=== PATIENT | female | born 1945 | race Caucasian/White ===

== ENCOUNTER → 2017-11-02 | Outpatient (CLI) | payer MEDICARE, OTHER ==
[~2017-11-02] MED LIST: ASPI-630 PO; ATOR20TA PO; CRAN400C PO; DOCU-109 PO; HYDR-2762 PO; IBUP200T44 PO; LACT1CAP29 PO; OMEG-167 PO; THYR60TA PO; UBID50CA25 PO
[2017-11-02 16:13] LABS: BASO % 1 % (0-3); EOS # 0.2 x10^3/uL (0.0-0.7); EOS % 3 % (0-3); HEMATOCRIT 41.7 % (36.0-47.0); HEMOGLOBIN 14.4 g/dL (12.0-15.5); LYMPH # 2.5 x10^3/uL (1.0-4.8); LYMPH % 31 % (24-48); MEAN CORPUSCULAR HEMOGLOBIN 32 pg (25-35); MEAN CORPUSCULAR HGB CONC 35 g/dL (31-37); MEAN CORPUSCULAR VOLUME 93 fL (79-100); MONO # 0.6 x10^3/uL (0.0-1.1); MONO % 7 % (0-9); NEUT # 4.6 x10^3uL (1.8-7.7); NEUT % 58 % (31-73); PLATELET COUNT 222 x10^3/uL (140-400); RED BLOOD COUNT 4.47 x10^6/uL (3.50-5.40); RED CELL DISTRIBUTION WIDTH 13.2 % (11.5-14.5); WHITE BLOOD COUNT 7.9 x10^3/uL (4.0-11.0)
--- NOTE | 2017-11-02 16:21 | EKG ---
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
[2017-11-02 16:35] LABS: ALBUMIN 3.9 g/dL (3.4-5.0); ALBUMIN/GLOBULIN RATIO 1.2 (1.0-1.7); CALCIUM 9.1 mg/dL (8.5-10.1); CREATININE 0.9 mg/dL (0.6-1.0); GFR 61.9; POTASSIUM 4.1 mmol/L (3.5-5.1); TOTAL BILIRUBIN 0.3 mg/dL (0.2-1.0); TOTAL PROTEIN 7.1 g/dL (6.4-8.2)
[2017-11-03 05:16] LABS: HEMOGLOBIN A1C 6.4 % (4.8-5.6)
== END | disposition home or self-care (01) ==
LOC: SURGPAT 13:17
PROVIDERS: ATTEND Neurological Surgery
DX: Z01.818 Encounter for other preprocedural examination (principal); M51.16 Intervertebral disc disorders with radiculopathy, lumbar region; E78.5 Hyperlipidemia, unspecified; R94.31 Abnormal electrocardiogram [ECG] [EKG]
CPT/HCPCS: 36415; 80053; 83036; 85025; 87641; 93005

== ENCOUNTER 2017-11-11 10:26 | Day surgery (SDC) | payer MEDICARE, OTHER ==
[~2017-11-11] VITALS: Ht 167.6 cm; Wt 79.4 kg
--- NOTE | 2017-11-11 09:26 | HP ---
ADMIT DATE: 11/11/2017 Abdullahi Boogie RN dictating for Dr. Hussein Mathur. DATE OF SURGERY: 11/11/2017 HISTORY OF PRESENT ILLNESS: The patient is a pleasant 72-year-old, who in 2001 underwent lumbar disk surgery by me and did very well. She said that in 06/2017, she developed severe back and right leg pain. Prior to that, she was having some problems with increasing lower back pain. Since that problem started, she has noted severe pain in her lower back, which radiates into her right hip. 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 Standing and walking even short distances is associated with significant pain. She awakens at night. She has difficulty sleeping because of the aching pain in her right leg. She says her pain is a 2/10 now, when she walks the pain reaches an 8-9/10. Rest has been of no significant benefit to her. Sitting does help her. She takes Motrin, but it is not particularly helpful. PAST MEDICAL HISTORY: Arthritis, asthma, COPD, cold sores give her blisters, diabetes. PAST SURGICAL HISTORY: Tonsillectomy in 1952; a D and C in 1977; a breast lumpectomy in 1989; toe surgery 1998; back surgery in 2001; broken foot in 1985, 2003, and 2009; hysterectomy 2017. FAMILY HISTORY: Cancer, diabetes, hypertension. SOCIAL HISTORY: Retired. . Exercises daily. Denies substance abuse. Former smoker. Drinks alcohol one daily. Drinks coffee and tea. ALLERGIES: No known drug allergies. CURRENT MEDICATIONS: Aspirin 81, [place] Thyroid, atorvastatin, esterase, fish oil, Coenzyme Q10, cranberry, probiotic collagen, Ventolin and Motrin. REVIEW OF SYSTEMS: A 12-point review of systems was obtained and is noncontributory except for that mentioned above. PHYSICAL EXAMINATION: NEUROSURGERY EXAMINATION: GENERAL APPEARANCE: Alert, pleasant, no acute distress. HEAD: Normocephalic and atraumatic. SKIN: Warm and dry. MUSCULOSKELETAL: Lumbar paraspinal muscle bulk is normal, restricted range of motion of lumbar spine, [id number]-rp-[id number] tenderness of lower lumbar spine with palpation, normal range of motion of the lower extremities bilaterally. EXTREMITIES: No clubbing, cyanosis or edema. NEUROLOGIC: Alert and oriented x 3, normal recent and remote memory, strength 5/5 in bilateral lower extremities except for 4+5 right EHL, sensory was intact to light touch in the bilateral lower extremities except for decrease in the right lateral leg to the dorsum of the right foot, reflexes were trace and symmetric in the lower extremities bilaterally, positive straight leg raising on the right, negative straight leg raising on the left, normal gait. IMAGING: Reviewed. I reviewed a lumbar MRI scan. On that study, there is a very large disk herniation on the right side at L4-L5 with marked effacement of the right L5 nerve root, to a lesser extent on the S1 nerve root. At L5-S1, there is a large posterior disk bulging, which is greater on the right side and which does not contact the S1 roots. ASSESSMENT: 1. Intervertebral disk disorders with radiculopathy, lumbar region. 2. Intervertebral disk disorders with radiculopathy, lumbosacral region. PLAN: The patient has a large disk herniation L4-L5, which is associated with very significant symptoms. My recommendation is that she undergo lumbar microsurgery for this. I would also decompress the right S1 nerve root at L5-S1 because of the significant posterior disk bulging and deviation of the right S1 root at that level as well. I spoke with her about the surgery and the risks. I outlined the postoperative course to the patient, her , and her son. I explained the technique of the surgery. She understands and she would like to go ahead. We will make the arrangements. HUSSEIN MATHUR MD DR: BERTRAND/tresa JOB#: [id number] / [id number]
[~2017-11-11 10:26] MED LIST changes: +BACITRACIN 50,000 UNIT in IV NORMAL SALINE 1000ML BAG 1,000 ML IRR ONE; +BUPIVAC MPF-EPI 0.5%-1:200000 30 ML VIAL. INJ ONE; -DOCU-109 PO; +GELATIN SPONGE SIZE 100. ONE; -HYDR-2762 PO; +HYDROmorphone 2 MG/ML VIAL IV PRN; -IBUP200T44 PO; +IV RINGERS,LACTATED 1000ML 1,000 ML IV SCH; +KETOROLAC 60 MG/2 ML INJ FOR OR. ONE; +LIDOCAINE 1% PF 2 ML VIAL. ID PRN; +MORPHINE SULFATE 2 MG/ML VIAL. IV PRN; +ONDANSETRON PF 4 MG/2 ML VIAL. IV PRN; +PROCHLORPERAZINE 10 MG/2 ML VIAL. IV PRN; +THROMBIN TOPICAL 20,000 UNIT SPRAY.SYRN KIT TP ONE; +fentaNYL PF VIAL 100 MCG/2 ML VIAL IV PRN
[2017-11-11] MEDS ORDERED: IBUP200T44 PO (10:50)
[2017-11-11] MEDS ORDERED: fentaNYL PF VIAL 250 MCG/5 ML VIAL ONE (12:20)
[2017-11-11] MEDS ORDERED: ROCURONIUM 50 MG/5 ML VIAL. ONE (12:20)
[2017-11-11] MEDS ORDERED: REMIFENTANIL 2 MG VIAL. IV ONE (12:20)
[2017-11-11] MEDS ORDERED: GLYCOPYRROLATE 1 MG/5 ML VIAL. ONE (13:06)
[2017-11-11] MEDS ORDERED: NEOSTIGMINE METHYLSULFATE 5 MG/5 ML SYRINGE. ONE (13:06)
[2017-11-11] MEDS ORDERED: ePHEDrine PF IN SALINE 50 MG/5 ML DISP.SYRIN IV ONE (13:24)
[2017-11-11] MEDS ORDERED: PHENYLEPHRINE in 0.9% NACL PF 1 MG/10 ML SYRINGE. IV ONE (14:24)
[2017-11-11] MEDS ORDERED: DESFLURANE > 120 MINUTES IH ONE (14:58)
--- NOTE | 2017-11-11 15:17 | DISCH ---
DISCHARGE INSTRUCTIONS Condition on Discharge Condition on Discharge: Stable Activity After Discharge Activity Instructions for Disc: Activity as tolerated, Avoid exertion Other activity instructions: no driving for a week Bathing Instructions: Shower-keep dressing dry Lifting Instructions after Dis: No heavy lifting, No pulling or pushing, Do not lift >10 pounds Diet after Discharge Additional Diet Restrictions: resume home diet Wound Incision Care Wound/Incision Care: Ice to area for comfort Other wound/incision instructi: may remove dressing in 48 hrs if dry then may shower, no soaking Contacting the after DC Call your doctor for: Concerns you may have Follow-Up Follow up with: Dr. Mathur's nurse 2 weeks [phone] EMERSON MATHUR MD Nov 11, 2017 15:17
[2017-11-11] MEDS ORDERED: HYDR-2762 PO (15:20)
[2017-11-11] MEDS ORDERED: DOCU-109 PO (15:20)
[2017-11-11] MEDS ORDERED: HYDROcodone/APAP 7.5/325MG 1 TAB TABLET PO ONE (15:30)
--- NOTE | 2017-11-11 16:01 | OP ---
DATE OF SURGERY: 11/11/2017 PREOPERATIVE DIAGNOSES: 1. Herniated lumbar disk L4-L5, right. 2. Lateral recess stenosis L5-S1, right with lumbar radiculopathy. POSTOPERATIVE DIAGNOSES: 1. Herniated lumbar disk L4-L5, right. 2. Herniated lumbar disk and lateral recess stenosis L5-S1 right with lumbar radiculopathy. OPERATION PERFORMED: 1. Hemilaminotomy with microdecompression of dura and nerve root L4-L5 right with microdiskectomy L4-L5, right. This is a reoperation at this level. 2. Hemilaminotomy with decompression of dura and nerve root and microdiskectomy L5-S1, right. The operation was done with EMG monitoring, fluoroscopy, microscopic dissection. LOAN AND CREDIT MANAGER: KAYCEE Pickering assisted with the surgery. She assisted with the exposure, the microdiskectomy and decompression at both levels as well as the closure. OPERATIVE INDICATIONS: The patient is a pleasant 72-year-old woman who has developed intractable back and right leg pain, which failed conservative measures. IMAGING STUDIES: She had the above-mentioned findings and I recommended lumbar microsurgery. I spoke with her about the surgery and the risks, technique and expected postoperative course and she wished to go ahead. DESCRIPTION OF PROCEDURE: Following general endotracheal anesthesia, the patient was positioned prone on the Dhruv table with lumbar regions prepped and draped in standard fashion. BREANNA hose and AV impulse boots were applied for DVT prophylaxis. The microscope was draped. Fluoroscopy was draped and brought into the field. Monitoring was established. Ancef 2 grams was given less than 1 hour prior to initiation of the surgery. Using fluoroscopic guidance, incision was made from L4 through S1. I dissected down skin and subcutaneous tissue, reflected the paraspinal muscles and placed a [place] microdisk retractor. I directed my attention to L4-L5. There was considerable scarring and I removed this with a long curette and then I brought in the microscope and the remainder of surgery done with the microscope using microscopic technique. I burred down a generous hemilaminotomy and performed a partial foraminotomy. I peeled away thickened ligamentum flavum, removed scar and exposed the dura and also the exiting L5 root. I retracted the root gently medially after I worked and freed up scar in the lateral edge of the nerve root. There was a large disk osteophyte complex. Much of the disk was badly degenerated and multiple small fragments. Superiorly, there was a large calcified portion of disk and I removed my portion of this. I worked and freed up the soft disk and then entered the disk space, which was largely collapsed and removed disk from within the disk space to hopefully decompress the entire region. I worked inferiorly and also decompressed. I then explored carefully, the root was very mobile. The disk material had been removed. I did perform partial foraminotomy. I then moved down to L5-S1. In a similar fashion, I burred down a generous hemilaminotomy, I trimmed away thickened ligamentum flavum, exposed the dura and the exiting S1 root. The root at this level was markedly compressed and deviated laterally. I made a large foraminotomy to remove pressure off of the S1 root and then retracted the root to medially incise the annulus, holding the root gently with a micro nerve root retractor. I did use 2.5 mm Fehling Kerrison to help trim bone and then after incising the annulus with a #11 blade, I did enter the disk space with a micropituitary and as I worked, I was able to remove a good deal of disk material and decrease the large hump, compressing the S1 root. As I worked, the region became well decompressed. I irrigated copiously. There was still significant disk osteophyte complex at this level, which was bound to the bone of L5 and S1 at the superior and inferior aspect of the disk space, but I did remove the significant central bulging and fully decompressed the root and at the end of the operation, the root was very mobile and not under significant pressure. I irrigated copiously at this point. I removed the retractor, obtained hemostasis in the muscle. Hemostasis was perfect. I irrigated, closed the wound in layers with absorbable suture. Skin was closed with 4-0 subcuticular stitch. The operation went very well and the patient was awakened uneventfully. I was quite pleased with the surgery. EMERSON MATHUR MD DR: BERTRAND/tresa JOB#: [id number] / [id number]
[2017-11-11 16:10] VITALS: BP 134/69
--- NOTE | 2017-11-16 10:08 | PATHOLOGY ---
[facility] Accession Number: [id number] . 01 Material submitted: . LUMBAR DISC AND DECOMPRESSION . 01 Clinical history: . Lumbar herniated disc radiculopathy . 02 Diagnosis: Segments of fibrocartilaginous, fibroadipose, and skeletal muscle tissue and bone, lumbar disc and decompression: - Degenerative changes of fibrocartilaginous tissue. LBQ/11/13/2017 . 02 Comment: There is no evidence of an acute inflammatory process or malignancy. (JPM/db; 11/13/17) . 02 Electronically signed: . Sang Mckeon MD, Pathologist NPI- [id number] . 01 Gross description: . Received in formalin labeled "Adilene Julien, lumbar disc and decompression," are several pieces of glistening, fibrous tissue measuring 3.0 x 1.6 x 0.8 cm in aggregate dimensions, containing small fragments of possible bone. The tissue submitted representatively in cassette A1, following decalcification. (TSD; 11/12/2017) TOB/TOB . 02 Pathologist provided ICD-10: M51.36 . 02 CPT . 573910, 193629 Specimen Comment: A courtesy copy of this report has been sent to Specimen Comment: [phone], . Specimen Comment: Report sent to / DR RECIO Performed at: 01 [facility] [address], [place] [id number] MD Ronny Huddleston MD Phone: [phone] Performed at: 02 [facility] [address] [place], [place] [id number] MD Sang Mckeon MD Phone: [phone]
== END 2017-11-11 17:18 | disposition home or self-care (01) ==
LOC: SURG 10:26
PROVIDERS: ATTEND Neurological Surgery
DX: M51.17 Intervertebral disc disorders with radiculopathy, lumbosacral region (principal); M48.061 Spinal stenosis, lumbar region without neurogenic claudication; J44.9 Chronic obstructive pulmonary disease, unspecified; E11.9 Type 2 diabetes mellitus without complications; M19.90 Unspecified osteoarthritis, unspecified site; Z90.710 Acquired absence of both cervix and uterus; Z98.890 Other specified postprocedural states; Z87.891 Personal history of nicotine dependence; Z72.89 Other problems related to lifestyle; Z79.899 Other long term (current) drug therapy; Z79.82 Long term (current) use of aspirin; Z79.84 Long term (current) use of oral hypoglycemic drugs; Z82.49 Family history of ischemic heart disease and other diseases of the circulatory system; Z83.3 Family history of diabetes mellitus
CPT/HCPCS: 63030; 63035; 82962; 97162; 97530; A7015; G8978; G8979; G8980; J0690; J1885; J2370; J2710; J3010; J3490; J7030; J7120; 76000